=== PATIENT | male | born 1930 | race Caucasian/White ===

== ENCOUNTER 2019-03-11 09:43 | Emergency (ER) | payer OTHER ==
[~2019-03-11] VITALS: Ht 182.9 cm; Wt 90.7 kg
[~2019-03-11 09:43] MED LIST: ACETAMINOPHEN325 M1 PO; ADULT LOW DOSE81 MG PO; ALLERCLEAR10 MG PO; ALTACE5 M1 PO; APAP650 PO; BRILINTA90 MG PO; CEPACOL SORE T1 EAC8 PO; COLACE100 MG PO; COLCHICINE 0.60.6 M1 PO; CRESTOR10 MG PO; CRESTOR20 MG PO; FINASTERIDE5 MG PO; HYDROCHLOROTH12.5 MG PO; KEFLEX500 MG PO; LEVOCETIRIZINE D5 MG PO; LISINOPRIL5 MG PO; NITROSTAT0.4 MG SUBLING; OMEPRAZOLE 20 M20 MG PO; PLAVIX 75 MG TA75 MG PO; PRESERVISION T1 EACH PO; TAMSULOSIN HCL0.4 M1 PO; TAZORAC; TOPROL XL25 MG PO; TRIAMCINOLONE A80 G2 TOP; ULORIC40 MG PO; UROXATRAL PO; VITAMIN D1000 UNI1 PO
[2019-03-11 09:44] VITALS: BP 130/71
[2019-03-11] MEDS ORDERED: MEDROLDOSEPACK PO (10:38)
[2019-03-11] MEDS ORDERED: HYDROXYZINE HCL10 M2 PO (10:38)
== END 2019-03-11 10:44 | disposition home or self-care (01) ==
LOC: ER 09:43
DX: R21 Rash and other nonspecific skin eruption (principal); I10 Essential (primary) hypertension; Z90.49 Acquired absence of other specified parts of digestive tract; Z87.891 Personal history of nicotine dependence; Z95.5 Presence of coronary angioplasty implant and graft